=== PATIENT | female | born 1985 | race African-American/Black ===

== ENCOUNTER 2016-12-01 20:53 | Emergency (ER) | payer MEDICAID, OTHER ==
[~2016-12-01] VITALS: Ht 162.6 cm; Wt 133.8 kg
[~2016-12-01 20:53] MED LIST: CIPROFLOXACIN500 M2 ORAL; NYSTATIN OINT15 GM TOPIC
[2016-12-01] MEDS ORDERED: ALBUTEROL SULF8.5 GM INH (21:13)
[2016-12-01] MEDS ORDERED: PREDNISONE20 MG ORAL (21:13)
--- NOTE | 2016-12-01 21:14 | Emergency Room Report ---
History of Present Illness General Chief Complaint: Flu Like Symptoms Source: Patient Present Illness HPI Is a 31-year-old female with no past medical history. She presents with chief complaint of cough and felt like she's wheezing. Has been ongoing for the last 3 days. No fever or chills. Does have congestion and runny nose. Denies chest pain other than from coughing. Cough is nonproductive in nature. No history of bronchitis or asthma. No sick contact the Allergies: Coded Allergies: No Known Allergies (Unverified , 12/01/16) Patient History Past Medical History: see triage record, old chart reviewed Past Surgical History: none Pertinent Family History: none Social History: Denies: smoking Last Menstrual Period: "a couple weeks ago" Now: No Immunizations: other Reviewed Nursing Documentation: PMH: Agreed, PSxH: Agreed Nursing Documentation-PMH Past Medical History: No Stated History Review of Systems Eye: Denies: blurred vision, eye pain ENT: Reports: ear pain, nose congestion Respiratory: Reports: cough, shortness of breath Cardiovascular: Denies: chest pain, palpitations Gastrointestinal: Denies: abdominal pain, diarrhea, nausea, vomiting Musculoskeletal: Denies: back pain, joint pain Skin: Denies: rash Neurological: Denies: headache, numbness Endocrine: Denies: increased thirst, increased urine Hematologic/Lymphatic: Denies: easy bruising All Other Systems: negative except mentioned in HPI Physical Exam Vital Signs Date Time Temp Pulse Resp B/P Pulse Ox O2 Delivery O2 Flow Rate FiO2 12/01/16 20:57 98.4 100 22 100 Room Air vitals normal Sp02 EP Interpretation: reviewed, normal General Appearance: well appearing, no apparent distress, alert Head: normocephalic, atraumatic Eyes: bilateral eye EOMI, bilateral eye PERRL ENT: hearing grossly normal, normal pharynx Neck: full range of motion, supple, no meningismus Respiratory: chest non-tender, lungs clear, normal breath sounds Cardiovascular #1: regular rate, rhythm, no murmur Gastrointestinal: normal bowel sounds, non tender, no mass, no organomegaly, no bruit, non-distended Musculoskeletal: back normal, gait/station normal, normal range of motion Psychiatric: mood/affect normal Skin: warm/dry Medical Decision Making Diagnostic Impression: Primary Impression: Acute viral bronchiolitis Additional Impression: Morbid obesity with BMI of 50.0-59.9, adult ER Course Patient presents with a viral bronchitis. No evidence of sepsis, pneumonia, ACS , PE to name a few. She's not wheezing. We'll treat symptomatically. No need for antibiotics. Last Vital Signs Date Time Temp Pulse Resp B/P Pulse Ox O2 Delivery O2 Flow Rate FiO2 12/01/16 20:57 98.4 100 22 100 Room Air Status: unchanged Disposition: HOME, SELF-CARE Condition: Stable Scripts Prednisone* (PREDNISONE*) 20 Mg Tablet 60 MG ORAL DAILY, #15 TAB Prov: MINNA STEIN M.D. 12/01/16 Albuterol Sulfate* (ALBUTEROL SULFATE MDI*) 8.5 Gm Hfa.aer.ad 2 PUFF INH Q4H Y for cough/wheezing, #1 EA 0 Refills Prov: MINNA STEIN M.D. 12/01/16 Additional Instructions: Followup with your Dr. in 7 days. Return if worse. MINNA STEIN M.D. Dec 01, 2016 21:14
[2016-12-01 21:31] VITALS: BP 160/90
== END 2016-12-01 21:31 | disposition home or self-care (01) ==
LOC: EMR 21:10
DX: J21.8 Acute bronchiolitis due to other specified organisms (principal); B34.9 Viral infection, unspecified; E66.01 Morbid (severe) obesity due to excess calories; Z68.43 Body mass index [BMI] 50.0-59.9, adult
CPT/HCPCS: 99284